=== PATIENT | female | born 1960 | race Asian ===

== ENCOUNTER 2017-10-10 15:39 | Emergency (ER) | payer OTHER ==
[2017-10-10] MEDS ORDERED: Cyclobenzaprine 10 MG Tab PO ONE (16:13)
--- NOTE | 2017-10-10 16:19 | EDM.PDOC ---
ED HPI GENERAL MEDICAL PROBLEM - General Chief Complaint: Back Pain or Injury Stated Complaint: BACK PAIN Time Seen by Provider: 10/10/17 16:05 Source of Information: Reports: Patient History Limitations: Reports: No Limitations - History of Present Illness INITIAL COMMENTS - FREE TEXT/NARRATIVE: Patient is a 56-year-old female with broken Citizen Of The [place] who presents ED complaining of left lower back pain. is present is also translating. We also used [employer] to communicate. Patient injured her back this past can while fishing. With bending over she felt some discomfort to her left lower back. Since and has been expressing intermittent pain that would radiate down the posterior aspect of the leg into her foot. She has some intermittent numbness as well. No incontinence to urine or stool. No saddle anesthesia. No previous history of back injury and/or surgery. She has been utilizing Tylenol with intermittent relief. She offers no additional complaints. In addition patient at work is on her feet for extended periods of time lifting heavy items. Pain is minimal at this time. Left Back Pain Score (Numeric/FACES): 6 - Related Data Allergies Allergy/AdvReac Type Severity Reaction Status Date / Time No Known Allergies Allergy Verified 10/10/17 15:51 Home Meds: Home Meds Cyclobenzaprine [Flexeril] 5 mg PO TID PRN #12 tab 10/10/17 [Rx] Past Medical History HEENT History: Reports: Impaired Vision Other HEENT History: wears corrective lenses Endocrine/Metabolic History: Reports: Other (See Below) Other Endocrine/Metabolic History: on hypothyroid medication, prescribed by pharmacist in [facility] Social & Family History - Tobacco Use Smoking Status *Q: Never Smoker - Caffeine Use Caffeine Use: Reports: Coffee - Recreational Drug Use Recreational Drug Use: No ED ROS GENERAL - Review of Systems Review Of Systems: See Below Constitutional: Reports: No Symptoms Respiratory: Reports: No Symptoms Cardiovascular: Reports: No Symptoms GI/Abdominal: Reports: No Symptoms : Reports: No Symptoms Neurological: Denies: Dizziness, Numbness, Tingling, Difficulty Walking ED EXAM,LOWER BACK PAIN/INJURY - Physical Exam Exam: See Below Exam Limited By: No Limitations General Appearance: Alert, WD/WN, No Apparent Distress Ears: Hearing Grossly Normal Nose: Normal Inspection Throat/Mouth: Normal Voice, No Airway Compromise Neck: Normal Inspection, Supple Respiratory/Chest: No Respiratory Distress, Lungs Clear, Normal Breath Sounds, No Accessory Muscle Use Cardiovascular: Normal Peripheral Pulses, Regular Rate, Rhythm GI/Abdominal: Normal Bowel Sounds, Soft, Non-Tender, No Organomegaly, No Distention Back Exam: Normal Inspection, Full Range of Motion, Other (Pain noted along the left lower back by the SI joint.). No: Paraspinal Tenderness, Vertebral Tenderness Extremities: Normal Inspection, Normal Range of Motion, Non-Tender, No Pedal Edema, Normal Capillary Refill Neurological: Alert, Normal Mood/Affect, Normal Dorsiflexion, CN II-XII Intact, Normal Plantar Flexion, Normal Gait, Normal Reflexes, No Motor/Sensory Deficits , Oriented x 3. No: Straight Leg Raise (L), Straight Leg Raise (R), Saddle Anesthesia Psychiatric: Normal Affect, Normal Mood Skin Exam: Warm, Dry, Intact, Normal Color, No Rash Course - Vital Signs Last Recorded V/S: Last Vital Signs Temp 98 F 10/10/17 15:48 Pulse 80 10/10/17 15:48 Resp 19 10/10/17 15:48 BP 161/75 H 10/10/17 15:48 Pulse Ox 99 10/10/17 15:48 - Orders/Labs/Meds Meds: Medications Discontinued Medications Generic Name Dose Route Start Last Admin Trade Name Freq PRN Reason Stop Dose Admin Cyclobenzaprine HCl 10 mg 10/10/17 16:13 10/10/17 16:25 Flexeril PO 10/10/17 16:14 10 mg ONETIME ONE Administration - Re-Assessments/Exams Free Text/Narrative Re-Assessment/Exam: Examination was benign. Straight leg raise was negative. She has no saddle anesthesia and/or incontinence to urine or stool. No sensory motor deficits distally. On palpation patient has some mild muscle discomfort. Suspect patient strained her low back. Treatment will consist of including: Ice, Tylenol/ ibuprofen, and Flexeril. Discharge instructions as documented. Departure - Departure Time of Disposition: 16:16 Disposition: Home, Self-Care 01 Condition: Good Clinical Impression: Left low back pain Qualifiers: Chronicity: acute Sciatica presence: without sciatica Qualified Code(s): M54.5 - Low back pain - Discharge Information Prescriptions: Cyclobenzaprine [Flexeril] 5 mg PO TID PRN #12 tab PRN Reason: Muscle Spasm Instructions: Back Pain, Adult, Musculoskeletal Pain, Back Injury Prevention, Heat Therapy, [id number] Referrals: Sari Soria QUALITY CONTROL ASSISTANT [Primary Care Provider] - Forms: ED Department Discharge Additional Instructions: Refrain from any activities that cause worsening pain. Utilize ibuprofen and Tylenol and alternate fashion for pain. For muscle spasms take the Flexeril as prescribed. Apply warm compresses to the affected area with gentle massage with ice to follow. Follow-up with primary care provider in the next week for reevaluation. Return to the ED if you develop any new or worsening symptoms.
== END 2017-10-10 16:25 | disposition home or self-care (01) ==
LOC: JD.ED 15:39
DX: M54.5 Low back pain (principal)
CPT/HCPCS: 99283; A9270